=== PATIENT | male | born 1995 | race Caucasian/White ===

== ENCOUNTER 2019-12-04 11:26 | Emergency (ER) | payer OTHER ==
[~2019-12-04] VITALS: Ht 170.2 cm; Wt 71.8 kg
[2019-12-04] MEDS ORDERED: prednisone taper (11:33)
--- NOTE | 2019-12-04 12:06 | REP ---
Chest x-ray: Two views. History: Shortness of breath and chest discomfort. History of spontaneous pneumothorax. . Comparison study: No comparison study. . Findings: The lungs are well inflated and free of infiltrate. The pleural angles are sharp. The heart size is normal. Pulmonary vasculature is not increased. No significant bony abnormality is seen. Impression: Negative chest x-ray. Electronically Signed by Gianfranco Menchaca MD 12/04/2019 11:57 A
[2019-12-04] MEDS ORDERED: IPRATROPIUM 0.5MG/ALBUTEROL 2.5MG INH SOL UD 3ML (DUONEB)(J7620) NEB ONE (12:45)
[2019-12-04 13:06] LABS: BASO % 0.1 % (0.0-1.0); EOS % 0.3 % (0.0-3.0); HEMATOCRIT 46.7 % (42.0-52.0); HEMOGLOBIN 14.8 g/dl (13.5-17.5); LYMPH # 0.6 10^3/uL (1.5-5.0); LYMPH % 4.2 % (24.0-44.0); MEAN CORPUSCULAR HEMOGLOBIN 29.1 pg (27.0-33.0); MEAN CORPUSCULAR HGB CONC 31.7 g/dl (32.0-36.5); MEAN CORPUSCULAR VOLUME 91.9 fl (80.0-96.0); MONO # 0.3 10^3/uL (0.0-0.8); MONO % 1.8 % (0.0-5.0); NEUTROPHILS # 13.8 10^3/uL (1.5-8.5); PLATELET COUNT, AUTOMATED 404 10^3/uL (150-450); RED BLOOD COUNT 5.08 10^6/uL (4.30-6.10); WHITE BLOOD COUNT 14.9 10^3/uL (4.0-10.0)
[2019-12-04 13:16] LABS: INR 1.05; PROTHROMBIN TIME 13.4 SECONDS (11.8-14.0)
[2019-12-04 13:27] LABS: ERYTHROCYTE SEDIMENTATION RATE 59 mm/hr (0-15)
[2019-12-04 13:29] LABS: MONO REFLEX EBV COMP NEGATIVE (NEGATIVE)
[2019-12-04] MEDS ORDERED: diphenhydrAMINE INJ 50MG/ML VIAL (J1200) IV ONE (13:45)
[2019-12-04 13:47] LABS: ALBUMIN 3.4 GM/DL (3.2-5.2); ALT/SGPT 96 U/L (12-78); BILIRUBIN,DIRECT 0.2 MG/DL (0.0-0.2); BILIRUBIN,TOTAL 0.5 MG/DL (0.2-1.0); BLOOD UREA NITROGEN 16 MG/DL (7-18); C REACTIVE PROTEIN QUANTITATIV 7.78 MG/DL (0.00-0.30); CALCIUM LEVEL 9.1 MG/DL (8.5-10.1); CARBON DIOXIDE LEVEL 28 MEQ/L (21-32); CHLORIDE LEVEL 104 MEQ/L (98-107); CK-MB VALUE MASS < 1.0 NG/ML (<3.6); CPK CREATINE PHOSPHOKINASE 26 U/L (39-308); CREATININE FOR GFR 0.86 MG/DL (0.70-1.30); GLOMERULAR FILTRATION RATE > 60.0 (>60); GLUCOSE, FASTING 92 MG/DL (70-100); MB/CK RELATIVE INDEX 3.85 (< OR =4); POTASSIUM SERUM 4.5 MEQ/L (3.5-5.1); SODIUM LEVEL 139 MEQ/L (136-145); THYROID STIMULATING HORMONE 0.891 uIU/ML (0.358-3.740); THYROXINE (T4) 6.3 UG/DL (4.5-12.0); TOTAL PROTEIN 6.9 GM/DL (6.4-8.2); TROPONIN I < 0.02 NG/ML (< 0.10)
[2019-12-04] MEDS ORDERED: ISOVUE-370 76% 100ML VIAL (Q9967) As Ordered ONE (13:58)
--- NOTE | 2019-12-04 14:33 | REP ---
CT PULMONARY ANGIOGRAM: WITH IV CONTRAST. HISTORY: Shortness of breath and chest pain. Rule out pulmonary embolism. COMPARISON STUDIES: No comparison study. CONTRAST DOSE: 100 mL of Isovue [address] TECHNIQUE: Helical scanning is acquired and overlapping 1.5 mm and contiguous 3 mm axial images are reformatted. In addition, maximum intensity projection and multiplanar re-formation images are generated in sagittal and coronal imaging projections. CT PULMONARY ANGIOGRAPHIC FINDINGS: There is good opacification in the pulmonary arterial tree. No filling defect or vessel cutoff is seen on axial or reformatted images to suggest pulmonary embolus. Thoracic aorta enhances homogeneously. There is no evidence of aneurysm or dissection. No pleural or pericardial effusion is seen. There is a mild alveolar infiltrate in the left lower lobe consistent with pneumonia. There are a few patchy alveolar densities in the right lower lobe as well. Lung padron are otherwise clear. No bony destructive lesion is appreciated. There is no evidence of hilar or mediastinal adenopathy. There is an AP window region lymph node in the mediastinum measuring 6 mm in short-axis dimension. This is not felt to be enlarged. No adrenal lesion is seen. No focal hepatic or splenic lesion is seen. IMPRESSION: No CT evidence of pulmonary embolus. There is an alveolar infiltrate in the left lower lobe and early alveolar changes are seen in the right lower lobe consistent with pneumonia. Otherwise, no acute disease. Electronically Signed by Gianfranco Menchaca MD 12/04/2019 06:20 P
--- NOTE | 2019-12-04 14:33 | REP ---
CT ABDOMEN AND PELVIS WITH IV BUT WITHOUT ORAL CONTRAST: HISTORY: Shortness of breath and chest pain. CT CONTRAST DOSE: 100 mL of intravenous Isovue 370. CT FINDINGS: Preliminary digital italian tutor radiograph shows an unremarkable bowel gas pattern. Increased alveolar densities seen in the left lower lobe of the lung. There is mild fatty infiltration of the liver. There are two small subcentimeter cysts in the liver. No abnormalities noted in the gallbladder or pancreas. Normal adrenal glands are seen bilaterally. Kidneys enhance symmetrically and are morphologically intact. 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 No retroperitoneal mass or adenopathy is seen. A normal appendix is seen just below the cecum in the right lower quadrant. Prostate seminal vesicles and urinary bladder are unremarkable. No pelvic mass or adenopathy is seen. No abdominal wall defect is observed. No bony destructive lesion is seen. IMPRESSION: Mild diffuse fatty infiltration of the liver. No acute intra-abdominal abnormality. Normal appendix seen. Electronically Signed by Gianfranco Menchaca MD 12/04/2019 06:20 P
[2019-12-04] MEDS ORDERED: AZIT-12 PO (15:02)
[2019-12-04] MEDS ORDERED: PROV108A INH (15:02)
[2019-12-04 15:11] VITALS: BP 139/74
--- NOTE | 2019-12-05 07:57 | ECGEPIP ---
[facility] - ED Test Date: 2019-12-04 Pat Name: COOPER PEARSON Department: Room: - Gender: Male Boom Tender: ct : 1995 Requested By: AURA RECINOS PA-C Order Number: [id number] Reading MD: Jocelynn Ruiz Measurements Intervals [place] Rate: 96 P: 12 WY: 131 QRS: 38 QRSD: 106 T: 20 QT: 348 QTc: 440 Interpretive Statements SINUS RHYTHM NO PRIOR Electronically Signed on 12-05-2019 7:57:31 EST by Jocelynn Ruiz
[2019-12-05 14:13] LABS: EBV VIRAL CAPSID AG IgM <36.0 U/mL (0.0-35.9)
== END 2019-12-04 15:14 | disposition home or self-care (01) ==
LOC: M ED 11:26
DX: J15.7 Pneumonia due to Mycoplasma pneumoniae (principal); L51.9 Erythema multiforme, unspecified
CPT/HCPCS: 71046; 71275; 74177; 80048; 80076; 82550; 82553; 84436; 84443; 84484; 85025; 85610; 85652; 86140; 86308; 86664; 86665; 87040; 87880; 93005; 94640; 96374; 99284; J1200; Q9967